=== PATIENT | female | born 1995 | race Caucasian/White ===

== ENCOUNTER 2018-08-21 22:04 | Outpatient (CLI) | payer BC, MEDICAID, SELFPAY ==
[2018-08-21 22:42] LABS: Bacteria 0 SEEN /hpf (None Seen); Mucous, Urine 0 SEEN /hpf (<or=2+); Red Blood Cells-Urine 0 SEEN /hpf (0-5)
[2018-08-21 22:47] LABS: Color, Urine Yellow (Yellow); Glucose, Dipstick Normal (Normal); Ketone-Dipstick Negative (Negative); Leukocyte Esterase-Dipstick 25 /ul (Negative); Nitrite-Dipstick Negative (Negative); Occult Blood-Urine Negative /ul (Negative); Protein-Dipstick 15 mg/dl (Negative); Specific Gravity, Urine 1.015 (1.002-1.030); Urine Bilirubin Dipstick Negative (Negative); Urine Clarity Clear (Clear); Urine Urobilinogen 1 mg/dl (Normal); Urine pH 6.5 (5.0 - 8.0)
[2018-08-21 22:53] LABS: Squamous Epithelial Cells - UA 0-5 SEEN /hpf (5-10); White Blood Cells 0-5 SEEN /hpf (0-5)
[2018-08-21 23:07] VITALS: BMI 33.6
[2018-08-21 23:12] LABS: ROM Internal Control Test YES-OK TO RESULT pt. (Internal QC); ROM Patient Test Negative (Negative)
[2018-08-21 23:48] VITALS: BP 127/83; PULSE 86; RESP 16; TEMP 36.4; O2SAT 98
--- NOTE | 2018-08-30 05:40 | OB.TRI.HP_ITS ---
- Problem List (1) False labor after 37 weeks of gestation without delivery Status: Acute History of Present Illness Date of Service: 08/21/18 Was patient seen by the physician?: No Reason For Visit: R/O LABOR Date of Service: 08/21/18 Final MICHAEL: 09/03/18 Final MICHAEL Source: US <20 weeks Gestational age: 39 Weeks and 3 Days History of Present Illness: Patient is a patient of [facility] and presented to triage repoting + contractions that started. Patient denies vaginal bleeding, denies SROM or other vaginal discharge. +FM reported. Patient concerned that cervix dilating and that she may not be able to make it to her care provider in [place]. Allergies No Known Allergies Allergy (Verified 08/21/18 23:11) Laboratory Studies: Laboratory Tests 08/21/18 08/21/18 Range/Units 22:25 22:25 Urine Color Yellow (Yellow) Urine Clarity Clear (Clear) Urine pH 6.5 (5.0 - 8.0) Ur Specific [place] 1.015 (1.002-1.030) Urine Protein 15 H (Negative) mg/dl Urine Glucose (UA) Normal (Normal) mg/dl Urine Ketones Negative (Negative) mg/dl Urine Occult Blood Negative (Negative) /ul Urine Nitrite Negative (Negative) Urine Bilirubin Negative (Negative) mg/dL Urine Urobilinogen 1 H (Normal) mg/dl Ur Leukocyte Esterase 25 H (Negative) /ul Urine RBC 0 SEEN (0-5) /hpf Urine WBC 0-5 SEEN (0-5) /hpf Ur Squamous Epith Cells 0-5 SEEN (5-10) /hpf Urine Bacteria 0 SEEN (None Seen) /hpf Urine Mucus 0 SEEN (<or=2+) /hpf Vag Amniotic Fld Detect Negative (Negative) Review of Systems Constitutional: Denies: Chills, Fever, Weight Change HEENT: Denies: Head Aches, Sinus Congestion, Sinus Drainage Cardiovascular: Denies: Chest Pain, Palpitations Respiratory: Denies: Cough, Shortness of breath at rest, Sputum production Gastrointestinal: Denies: Abdominal Pain, Nausea, Vomiting Genitourinary: Denies: Dysuria Gynecological: Denies: Vaginal bleeding, Vaginal discharge, Vaginal itching Musculoskeletal: Denies: Joint Pain, Joint Tenderness Skin: Denies: Rash, Wounds Neurological: Denies: Numbness, Tingling, Focal weakness Psychiatric: Denies: Anxiety, Depression, Homicidal Ideations, Suicidal Ideations Hematologic/ Lymphatic: Denies: Easy Bruising, Easy Bleeding Physical Exam Vitals: Vital Signs Temp Pulse Resp BP Pulse Ox 97.6 F L 86 16 127/83 H 98 08/21/18 23:48 08/21/18 23:48 08/21/18 23:48 08/21/18 23:48 08/21/18 23:48 See nursing assessment for vital signs and PE NST - FHR Rate Baby A Baseline: 120 Variability:: Moderate Accelerations:: 15 x 15 Decelerations:: None NST Reactive:: Yes, Appropriate for gestational age FHR Category:: Category I Uterine Activity:: Ctx q 10-13 minutes on monitor Impression/Plan 22 y/o @ 38.1 wks, False Labor, Category I FHT P: 1) Discharge patient to home with labor precautions 2) [facility] teaching reviewed 3) Patient to follow-up with her [place] [facility] provider tomorrow Ximena ALVAREZ
== END 2018-08-21 23:48 | disposition home or self-care (01) ==
LOC: WPOUT 22:30 → WP 22:30
PROVIDERS: Referring Provider Obstetrics & Gynecology; Visit Provider Obstetrics & Gynecology
DX: O47.1 False labor at or after 37 completed weeks of gestation (principal); Z3A.39 39 weeks gestation of pregnancy
CPT/HCPCS: 59025; 59050; 81001; 84112; 99218; G0378